=== PATIENT | male | born 1990 | race Caucasian/White ===

== ENCOUNTER 2018-10-24 17:14 | Emergency (ER) | payer OTHER ==
[~2018-10-24] VITALS: Ht 185.4 cm; Wt 71.7 kg
[2018-10-24] MEDS ORDERED: KEFLEX500 M1 PO (18:09)
[2018-10-24 18:25] VITALS: BP 124/69
== END 2018-10-24 18:26 | disposition home or self-care (01) ==
LOC: M.ERS 17:14
DX: S61.012A Laceration without foreign body of left thumb without damage to nail, initial encounter (principal); X58.XXXA Exposure to other specified factors, initial encounter; Y93.89 Activity, other specified; Y92.89 Other specified places as the place of occurrence of the external cause; Y99.8 Other external cause status

== ENCOUNTER → 2020-06-11 | Emergency (ER) | payer OTHER ==
[~2020-06-11] VITALS: Ht 185.4 cm; Wt 72.6 kg
[~2020-06-11] MED LIST: KEFLEX500 M1 PO; ZPAK PO
[2020-06-11 20:23] VITALS: BP 150/94
== END ==
LOC: M.ERS 19:29
DX: B34.9 Viral infection, unspecified (principal); Z20.828 Contact with and (suspected) exposure to other viral communicable diseases